=== PATIENT | female | born 1955 | race Caucasian/White ===

== ENCOUNTER 2019-04-02 13:19 | Inpatient (IN) | payer BC ==
[2019-04-02] MEDS ORDERED: KETOROLAC 30 MG/ML 1 ML VIAL IVP STA (14:23)
[2019-04-02] MEDS ORDERED: MORPHINE SULFATE 4 MG/ML SYRINGE IVP STA (14:23)
[2019-04-02] MEDS ORDERED: ONDANSETRON 4 MG/2 ML VIAL IVP STA (14:23)
[2019-04-02] MEDS ORDERED: SODIUM CHLORIDE 0.9% 1,000 ML IV ONE (14:24)
[2019-04-02] MEDS ORDERED: metroNIDAZOLE-NS PMX 500 MG in SALINE 1 100ML.BAG IVPB STA (14:24)
[2019-04-02] MEDS ORDERED: LEVOFLOXACIN 750MG-D5W PMX 750 MG in DEXTROSE/WATER 1 150ML.BAG IVPB STA (14:24)
--- NOTE | 2019-04-02 14:26 | ED ---
Abdominal Pain HPI - General Chief Complaint: Abdominal Pain Stated Complaint: possible perforated bowel Time Seen by Provider: 04/02/19 14:07 Source: patient, RN notes reviewed, old records reviewed Mode of arrival: ambulatory Limitations: no limitations - History of Present Illness Initial Comments: Patient is a 63-year-old female who presents emergency department today for evaluation for right-sided abdominal pain for the past 3-4 days. Patient states her symptoms started Monday night. Patient states that she had worsening abdominal pain and she decided that her primary care doctor's office today. They sent Patient for an outpatient CT and was sent directly here. Patient reports that she has had no nausea or vomiting. She's had frequent stools but has not been eating much for the past few days. Patient denies any associated chest pain or shortness of breath. She did report some chills but no specific fever. - Related Data Home Medications Medication Instructions Recorded Confirmed Levothyroxine Sodium [Synthroid] 88 mcg PO DAILY 04/02/19 04/02/19 Allergies Allergy/AdvReac Type Severity Reaction Status Date / Time bee venom protein (honey bee) Allergy Anaphylaxis Verified 04/02/19 13:56 cortisone Allergy Anaphylaxis Verified 04/02/19 13:56 fire ant Allergy Anaphylaxis Verified 04/02/19 13:56 latex Allergy Rash/Hives Verified 04/02/19 13:56 nickel Allergy Rash/Hives Verified 04/02/19 13:56 nitrofurantoin Allergy Anaphylaxis Verified 04/02/19 13:56 [From Macrodantin] triamcinolone [From Nasacort] Allergy Anaphylaxis Verified 04/02/19 13:56 cephalexin [From Keflex] AdvReac Vomiting Verified 04/02/19 13:56 meperidine [From Demerol] AdvReac Vomiting Verified 04/02/19 13:56 sulfamethoxazole AdvReac Nausea & Verified 04/02/19 13:56 [From Bactrim] Vomiting & Diarrhea trimethoprim [From Bactrim] AdvReac Nausea & Verified 04/02/19 13:56 Vomiting & Diarrhea Review of Systems ROS Statement: Those systems with pertinent positive or pertinent negative responses have been documented in the HPI. ROS Other: All systems not noted in ROS Statement are negative. Past Medical History Past Medical History: No Reported History History of Any Multi-Drug Resistant Organisms: None Reported Past Surgical History: Appendectomy, Section, Tubal Ligation Additional Past Surgical History / Comment(s): ovarian cyst removed. breast biopsy Past Psychological History: No Psychological Hx Reported Smoking Status: Current every day smoker Past Alcohol Use History: None Reported Past Drug Use History: None Reported General Exam - General Exam Comments Initial Comments: This is a 63-year-old female. Alert and oriented. No significant distress. Limitations: no limitations General appearance: alert, in no apparent distress Head exam: Present: atraumatic, normocephalic, normal inspection Eye exam: Present: normal appearance, PERRL, EOMI. Absent: scleral icterus, conjunctival injection, periorbital swelling ENT exam: Present: normal exam, mucous membranes moist Neck exam: Present: normal inspection. Absent: tenderness, meningismus, lymphadenopathy Respiratory exam: Present: normal lung sounds bilaterally. Absent: respiratory distress, wheezes, rales, rhonchi, stridor Cardiovascular Exam: Present: regular rate, normal rhythm, normal heart sounds. Absent: systolic murmur, diastolic murmur, rubs, gallop, clicks GI/Abdominal exam: Present: soft, tenderness (Right upper quadrant tenderness), normal bowel sounds. Absent: distended, guarding, rebound, rigid Extremities exam: Present: normal inspection, full ROM, normal capillary refill. Absent: tenderness, pedal edema, joint swelling, calf tenderness Back exam: Present: normal inspection Neurological exam: Present: alert, oriented X3, CN II-XII intact Psychiatric exam: Present: normal affect, normal mood Skin exam: Present: warm, dry, intact, normal color. Absent: rash Course Vital Signs 04/02/19 13:39 Temperature 98.5 F Pulse Rate 98 Respiratory 18 Rate Blood Pressure 121/81 O2 Sat by Pulse 95 Oximetry Medical Decision Making - Medical Decision Making 63-year-old female presents from outpatient CT for abnormal findings. She's been having abdominal pain, and right upper quadrant tenderness for the past [address] shows evidence of acute diverticulitis with a small amount of air frequent air related to localized perforation. There is also noted bladder mass that was a new etiology. Patient reports that she has had chronic hematuria for months. Patient with blood cell count is elevated 16,000. Blood cultures are completed started the Patient on Levaquin and Flagyl. Patient on exam has some tenderness but no acute surgical abdomen noted. Patient advised that she'll be admitted with consult to surgery. Patient is going to be on a nothing by mouth diet until further treatment. - Radiology Data Radiology results: report reviewed CT abdomen and pelvis shows moderate to severe short segment inflammation along the hepatic flexure and proximal transverse colon. Mild diverticular change here with adjacent small air locule. Findings just of acute diverticulitis with small localized perforation. Direct visualization recommended after successful treatment to exclude underlying neoplasm. Findings suggestive 1.6 cm left posterior bladder wall mass. Urethral carcinoma isn't excluded this time. Correlate for urine cytology and direct visualization as indicated. Also a 3 cm left adnexal cystic lesion likely ovarian in etiology. Patient is able to indicate a pelvic ultrasound to further characterize to determine subsequent follow-up/management recommendations. Disposition Clinical Impression: Diverticulitis of colon with perforation, Bladder mass, Ovarian mass, Leukocytosis Disposition: ADMITTED IP TO THIS HOSP Condition: Stable Is patient prescribed a controlled substance at d/c from ED?: No Referrals: Baldemar Agee MD [Primary Care Provider] - 1-2 days Time of Disposition: 14:29
[2019-04-02] MEDS ORDERED: ACETAMINOPHEN TAB 325 MG TAB PO PRN (14:29)
[2019-04-02] MEDS ORDERED: IBUPROFEN 400 MG TAB PO PRN (14:29)
[2019-04-02] MEDS ORDERED: MORPHINE SULFATE 4 MG/ML SYRINGE IV PRN (14:29)
[2019-04-02] MEDS ORDERED: KETOROLAC 30 MG/ML 1 ML VIAL IVP PRN (14:29)
[2019-04-02] MEDS ORDERED: NALOXONE 0.4 MG/ML 1 ML VIAL IV PRN (14:29)
[2019-04-02] MEDS ORDERED: ONDANSETRON 4 MG/2 ML VIAL IVP PRN (14:29)
[2019-04-02] MEDS: SODIUM CHLORIDE 0.9% 1,000 ML IV SCH ×2 (14:56→23:57)
[2019-04-03 07:55] VITALS: RESP 16
[2019-04-03] MEDS ORDERED: PANTOPRAZOLE 40 MG/10 ML VIAL IV SCH (09:00)
--- NOTE | 2019-04-03 09:25 | P.GSCN ---
<Tammi Rios A - Last Filed: 04/03/19 09:18> History of Present Illness Consult date: 04/03/19 Reason for Consult: diverticulitis Requesting physician: Chelo Hall History of present illness: CHIEF COMPLAINT: Abdominal pain HISTORY OF PRESENT ILLNESS: 63 year old female who presented to the emergency room secondary to abdominal pain. Patient reports abdominal pain for the last 3- 4 days and was evaluated at her PCP yesterday who ordered CT scan. CT scan revealed diverticulitis with small localized perforation. Patient reports mild abdominal discomfort this morning. WBC yesterday was 16.0. Hemoglobin 14.4. Vital signs stable. She is afebrile. PAST MEDICAL HISTORY: See list. PAST SURGICAL HISTORY: See list. SOCIAL HISTORY: No illicit drug use. REVIEW OF SYSTEMS: CONSTITUTIONAL: Denies fever or chills. HEENT: Denies blurred vision, vision changes, or eye pain. Denies hemoptysis CARDIOVASCULAR: Denies chest pain or pressure. RESPIRATORY: No shortness of breath. GASTROINTESTINAL: Refer to HPI for pertinent findings HEMATOLOGIC: Denies bleeding disorders. GENITOURINARY: Denies any blood in urine. SKIN: Denies pruitis. Denies rash. PHYSICAL EXAM: VITAL SIGNS: Reviewed. GENERAL: Well-developed in no acute distress. HEENT: No sclera icterus. Extraocular movements grossly intact. Moist buccal mucosa. Head is atraumatic, normocephalic. ABDOMEN: Soft. Nondistended. Mild tenderness to palpation. Positive bowel sounds. NEUROLOGIC: Alert and oriented. Cranial nerves II through XII grossly intact. ASSESSMENT: 1. Abdominal pain 2. Acute diverticulitis with microperforation PLAN: 1. Begin full liquid diet 2. Continue antibiotics. Monitor WBC 3. Patient to see Dr. Atkins outpatient post discharge. She will require colonoscopy in 4-6 weeks. Nurse practitioner note has been reviewed by physician. Signing provider agrees with the documented findings, assessment, and plan of care. Past Medical History Past Medical History: Thyroid Disorder Additional Past Medical History / Comment(s): hypothyroid History of Any Multi-Drug Resistant Organisms: None Reported Past Surgical History: Appendectomy, Section, Tubal Ligation Additional Past Surgical History / Comment(s): ovarian cyst removed. breast biopsy Past Anesthesia/Blood Transfusion Reactions: No Reported Reaction Additional Past Anesthesia/Blood Transfusion Reaction / Comm: hard to wake up with anesthesia Past Psychological History: No Psychological Hx Reported Smoking Status: Current every day smoker Past Alcohol Use History: None Reported Past Drug Use History: None Reported - Past Family History Father Family Medical History: Coronary Artery Disease (CAD) Medications and Allergies Home Medications Medication Instructions Recorded Confirmed Type Levothyroxine Sodium [Synthroid] 88 mcg PO DAILY 04/02/19 04/02/19 History Allergies Allergy/AdvReac Type Severity Reaction Status Date / Time bee venom protein (honey bee) Allergy Anaphylaxis Verified 04/02/19 13:56 cortisone Allergy Anaphylaxis Verified 04/02/19 13:56 fire ant Allergy Anaphylaxis Verified 04/02/19 13:56 latex Allergy Rash/Hives Verified 04/02/19 13:56 nickel Allergy Rash/Hives Verified 04/02/19 13:56 nitrofurantoin Allergy Anaphylaxis Verified 04/02/19 13:56 [From Macrodantin] triamcinolone [From Nasacort] Allergy Anaphylaxis Verified 04/02/19 13:56 cephalexin [From Keflex] AdvReac Vomiting Verified 04/02/19 13:56 meperidine [From Demerol] AdvReac Vomiting Verified 04/02/19 13:56 sulfamethoxazole AdvReac Nausea & Verified 04/02/19 13:56 [From Bactrim] Vomiting & Diarrhea trimethoprim [From Bactrim] AdvReac Nausea & Verified 04/02/19 13:56 Vomiting & Diarrhea Surgical - Exam Vital Signs Temp Pulse Resp BP Pulse Ox 98.5 F 98 18 121/81 95 04/02/19 13:39 04/02/19 13:39 04/02/19 13:39 04/02/19 13:39 04/02/19 13:39 <Dominguez Atkins - Last Filed: 04/03/19 10:14> History of Present Illness History of present illness: As above. Patient with a 3 day history of right upper quadrant abdominal pain. Patient had an outpatient CAT scan showing inflammatory changes at the proximal transverse colon with possibility of small microperforation. Patient feels quite well and is actually very impatient to go home at this time. She is very hungry and thirsty. Denies fevers. Has had mild right-sided pain that she thought may be her gallbladder for the last few months intermittently. No history of previous colonoscopy. CAT scan findings and clinical scenario discussed in detail with the patient and her . Certainly some concern regarding the possibility of underlying malignancy given the CAT scan findings and the patient's abdominal exam at this time. Agree with plans for IV antibiotics. If she tolerates full liquids would consider discharge staining on full liquids for 48 hours before advancing to low fiber diet. Continue antibiotics for 7 days post discharge. Importance of colonoscopy in the next 4- 8 weeks discussed in detail the patient was initially refusing future colonoscopy. I believe now she is willing to proceed given the CAT scan findings. Await repeat CBC this morning. Will follow. Surgical - Exam Vital Signs Temp Pulse Resp BP Pulse Ox 98.5 F 98 18 121/81 95 04/02/19 13:39 04/02/19 13:39 04/02/19 13:39 04/02/19 13:39 04/02/19 13:39
[2019-04-03] MEDS ORDERED: LEVOTHYROXINE 88 MCG TAB PO SCH (09:30)
[2019-04-03] MEDS ORDERED: metroNIDAZOLE-NS PMX 500 MG in SALINE 1 100ML.BAG IVPB SCH (10:00)
[2019-04-03] MEDS: SODIUM CHLORIDE 0.9% 1,000 ML IV SCH (11:59)
[2019-04-03 12:23] LABS: Basophils # (A) 0.1 k/uL (0-0.2); Basophils % (A) 1 %; Eosinophils # (A) 0.2 k/uL (0-0.7); Eosinophils % (A) 1 %; HCT 39.6 % (34.0-46.0); HGB 12.7 gm/dL (11.4-16.0); Lymphocytes # (A) 2.2 k/uL (1.0-4.8); Lymphocytes % (A) 13 %; MCH 29.8 pg (25.0-35.0); MCV 93.2 fL (80.0-100.0); Mean Platelet Volume 6.9; Monocytes # (A) 0.7 k/uL (0-1.0); Monocytes % (A) 4 %; Neutrophils # (A) 13.8 k/uL (1.3-7.7); Neutrophils % (A) 80 %; Platelet Count 354 k/uL (150-450); RBC 4.25 m/uL (3.80-5.40); RDW 15.4 % (11.5-15.5); WBC 17.2 k/uL (3.8-10.6)
[2019-04-03] MEDS ORDERED: LEVOFLOXACIN 750MG-D5W PMX 750 MG in DEXTROSE/WATER 1 150ML.BAG IVPB SCH (14:00)
[2019-04-03 15:09] VITALS: BP 115/77; TEMP 98.3
[2019-04-03 15:21] VITALS: PULSE 72
--- NOTE | 2019-04-03 16:08 | P.HPIM ---
History of Present Illness H&P Date: 04/03/19 Chief Complaint: Abdominal pain This is 63-year-old female presented to the ER with complaints of right-sided abdominal pain 3 days, accompanied by a decrease appetite, frequent stools, positive chills, no fever and chronic hematuria. Presented to the PCP. Outpatient CT performed, abnormal reporting acute diverticulitis, small air secondary to localized perforation, 1.6 cm bladder mass, 3 cm left adnexal cystic lesion-? ovarian. WBC 16 , hemoglobin 14.4, VSS. Denies chest pain, palpitations or shortness of breath. Initiated on Levaquin and Flagyl. Evaluated by surgery, nonsurgical abdomen, diet advanced to full liquids with outpatient scope recommended in a few weeks. Afebrile. Review of Systems ROS Statement: Those systems with pertinent positive or pertinent negative responses have been documented in the HPI. ROS Other: All systems not noted in ROS Statement are negative. Past Medical History Past Medical History: Thyroid Disorder Additional Past Medical History / Comment(s): hypothyroid History of Any Multi-Drug Resistant Organisms: None Reported Past Surgical History: Appendectomy, Section, Tubal Ligation Additional Past Surgical History / Comment(s): ovarian cyst removed. breast biopsy Past Anesthesia/Blood Transfusion Reactions: No Reported Reaction Additional Past Anesthesia/Blood Transfusion Reaction / Comment(s): hard to wake up with anesthesia Past Psychological History: No Psychological Hx Reported Smoking Status: Current every day smoker Past Alcohol Use History: None Reported Past Drug Use History: None Reported - Past Family History Father Family Medical History: Coronary Artery Disease (CAD) Medications and Allergies Home Medications Medication Instructions Recorded Confirmed Type Levothyroxine Sodium [Synthroid] 88 mcg PO DAILY 04/02/19 04/02/19 History Allergies Allergy/AdvReac Type Severity Reaction Status Date / Time bee venom protein (honey bee) Allergy Anaphylaxis Verified 04/02/19 13:56 cortisone Allergy Anaphylaxis Verified 04/02/19 13:56 fire ant Allergy Anaphylaxis Verified 04/02/19 13:56 latex Allergy Rash/Hives Verified 04/02/19 13:56 nickel Allergy Rash/Hives Verified 04/02/19 13:56 nitrofurantoin Allergy Anaphylaxis Verified 04/02/19 13:56 [From Macrodantin] triamcinolone [From Nasacort] Allergy Anaphylaxis Verified 04/02/19 13:56 cephalexin [From Keflex] AdvReac Vomiting Verified 04/02/19 13:56 meperidine [From Demerol] AdvReac Vomiting Verified 04/02/19 13:56 sulfamethoxazole AdvReac Nausea & Verified 04/02/19 13:56 [From Bactrim] Vomiting & Diarrhea trimethoprim [From Bactrim] AdvReac Nausea & Verified 04/02/19 13:56 Vomiting & Diarrhea Physical Exam Vitals: Vital Signs Temp Pulse Pulse Resp BP BP BP 04/03/19 07:00 98.6 F 72 16 114/66 04/03/19 00:46 98.9 F 78 14 104/58 04/02/19 21:00 97.1 F L 80 14 116/71 04/02/19 20:00 98.9 F 79 18 123/76 04/02/19 15:45 98.2 F 78 17 114/73 04/02/19 15:25 78 17 04/02/19 13:39 98.5 F 98 18 121/81 Pulse Ox 04/03/19 07:00 94 L 04/03/19 00:46 96 04/02/19 21:00 04/02/19 20:00 98 04/02/19 15:45 95 04/02/19 15:25 04/02/19 13:39 95 Intake and Output 04/02/19 04/03/19 04/03/19 22:59 06:59 14:59 Intake Total 0 Balance 0 Intake: Oral 0 Other: Voiding Method Toilet # Voids 1 PHYSICAL EXAM: VITAL SIGNS: As above GENERAL: Sitting up in chair, no acute distress, anxious HEENT: Conjunctivae normal. eyes normal. Oral mucosa moist NECK: No JVD. No thyroid enlargement. No LNs CARDIOVASCULAR: S1, S2 regular.. No murmur RESPIRATION: Breath sounds diminished in the bases. No rhonchi or crackles. No bronchial breathing. ABDOMEN: Soft, nondistended, mild right lower quadrant tenderness . No guarding. no masses palpable. No ascites, No hepatosplenomegaly.Bowel sounds heard. LEGS: No edema. no swelling PSYCHIATRY: Alert and oriented X3, mood and affect normal. NERVOUS SYSTEM: Cranial N 2-12 grossly normal. Moves all 4 limbs. No focal deficits. Strength and sensation grossly intact.. Skin: no lesions, no rash Lymphatic system. No LN neck axilla or groin. Results CBC & Chem 7: 04/03/19 12:05 Thrombosis Risk Factor Assmnt - Choose All That Apply Each Risk Factor Represents 2 Points: Age 61-74 years Thrombosis Risk Factor Assessment Total Risk Factor Score: 2 Thrombosis Risk Factor Assessment Level: Low Risk Assessment and Plan Assessment: -Abdominal pain secondary to Acute Diverticulitis with microperforation -Leukocytosis, secondary to the above -Possible bladder mass/ovarian mass as per CT -Hypothyroidism Plan: Continue current medication regime ,monitoring and symptomatic treatment. Continue on Levaquin and Flagyl. Homans have been reviewed and resumed. GI prophylaxis. Close monitoring of WBC, patient reports she had prior bladder/renal/pelvis scans at [facility] in October or November 2018, records been obtained. Pelvis ultrasound ordered. Diet advancement as per surgery. Blood cultures pending. Outpatient follow-up with urology. Further recommendations to follow. The impression and plan of care has been dictated as directed. : I performed a history and examination of this patient, discussed the same with the dictator. I agree with the dictator's note ,documented as a scribe. Any additional findings or plans will be noted. Time taken: 35 minutes
--- NOTE | 2019-04-03 16:25 | US ---
EXAMINATION TYPE: US pelvic complete DATE OF EXAM: 04/03/2019 COMPARISON: CT 2019 CLINICAL HISTORY: Bladder mass, ovarian mass. Ovarian/bladder mass seen on previous CT, pelvic pain, hematuria, 2, para 2, history of 2 c-sections, tubal ligation, right ovary removed TECHNIQUE: . Transabdominal sonographic images of the pelvis were acquired. Date of LMP: 15 years ago EXAM MEASUREMENTS: Uterus: 7.8 x 1.5 x 3.7 cm Endometrial Stripe: 0.3 cm Right Ovary: surgically absent Left Ovary: 3.6 x 2.1 x 3.0 cm 1. Uterus: anteverted 2. Endometrium: wnl 3. Right Ovary: surgically absent 4. Left Ovary: 2.4 x 1.5 x 2.1cm cystic area 5. Bilateral Adnexa: wnl 6. Posterior cul-de-sac: wnl Bladder: 2.0 x 1.4 x 2.4cm hypoechoic solid appears area left posterior wall IMPRESSION: 1. Hypoechoic solid bladder lesion noted posterior wall on the left. 2. Nonspecific cyst left ovary measuring 2.5 x 2.1 cm.
[2019-04-04] MEDS ORDERED: PANTOPRAZOLE 40 MG TABLET PO SCH (09:00)
--- NOTE | 2019-04-04 09:31 | P.DS ---
Providers Date of admission: 04/02/19 14:20 Expected date of discharge: 04/03/19 Attending physician: Baldemar Agee Consults: 04/02/19 14:29 Consult Physician Stat Consulting Provider: Dominguez Atkins Consult Reason/Comments: Diverticulitis with minimal perforation Do you want consulting provider notified?: Yes Primary care physician: Baldemar Agee [facility] Course: patient left AMA. Please refer to my H & P for specifics. Patient Condition at Discharge: Stable Plan - Discharge Summary Discharge Rx Participant: Yes New Discharge Prescriptions: No Action Levothyroxine Sodium [Synthroid] 88 mcg PO DAILY Discharge Medication List Levothyroxine Sodium [Synthroid] 88 mcg PO DAILY 04/02/19 [History] Follow up Appointment(s)/Referral(s): Dominguez Atkins MD [Medical Doctor] - 2 Weeks Baldemar Agee MD [Primary Care Provider] - 1 Week Discharge Disposition: Left Against Medical Advice
== END 2019-04-03 19:15 | disposition left against medical advice (07) | DRG 392 ==
LOC: EC 13:19 → 4SSUR 14:20
PROVIDERS: ADMIT Family Medicine; ATTEND Family Medicine
DX: K57.20 Diverticulitis of large intestine with perforation and abscess without bleeding (principal); N83.9 Noninflammatory disorder of ovary, fallopian tube and broad ligament, unspecified; N32.9 Bladder disorder, unspecified; E03.9 Hypothyroidism, unspecified; F17.200 Nicotine dependence, unspecified, uncomplicated; N83.292 Other ovarian cyst, left side; Z79.890 Hormone replacement therapy; Z82.49 Family history of ischemic heart disease and other diseases of the circulatory system; Z88.1 Allergy status to other antibiotic agents; Z91.030 Bee allergy status; Z91.040 Latex allergy status; Z88.2 Allergy status to sulfonamides; Z88.8 Allergy status to other drugs, medicaments and biological substances; Z91.048 Other nonmedicinal substance allergy status; Z98.891 History of uterine scar from previous surgery; Z98.51 Tubal ligation status; Z90.89 Acquired absence of other organs; Z90.49 Acquired absence of other specified parts of digestive tract
CPT/HCPCS: 36415; 76856; 85025; 87040; 96365; 99285

== ENCOUNTER → 2019-04-02 | Outpatient (CLI) | payer BC ==
[2019-04-02 11:48] LABS: Basophils # (A) 0.1 k/uL (0-0.2); Basophils % (A) 1 %; Eosinophils # (A) 0.1 k/uL (0-0.7); Eosinophils % (A) 1 %; HCT 45.6 % (34.0-46.0); HGB 14.4 gm/dL (11.4-16.0); Lymphocytes # (A) 2.4 k/uL (1.0-4.8); Lymphocytes % (A) 15 %; MCH 29.4 pg (25.0-35.0); MCHC 31.5 g/dL (31.0-37.0); MCV 93.2 fL (80.0-100.0); Mean Platelet Volume 6.7; Monocytes # (A) 0.7 k/uL (0-1.0); Monocytes % (A) 4 %; Neutrophils # (A) 12.6 k/uL (1.3-7.7); Neutrophils % (A) 78 %; Platelet Count 405 k/uL (150-450); RBC 4.89 m/uL (3.80-5.40)
[2019-04-02 11:55] LABS: ALT 14 U/L (9-52); AST 18 U/L (14-36); African American GFR (CKD) >90 (>60 ml/min/1.73 sqM); Albumin 4.5 g/dL (3.5-5.0); Alkaline Phosphatase 87 U/L (38-126); Amylase 35 U/L (30-110); Anion Gap 10 mmol/L; Blood Urea Nitrogen 10 mg/dL (7-17); Calcium 9.8 mg/dL (8.4-10.2); Carbon Dioxide 27 mmol/L (22-30); Chloride 102 mmol/L (98-107); Glucose 98 mg/dL (74-99); Lipase 47 U/L (23-300); Potassium 4.3 mmol/L (3.5-5.1); Sodium 139 mmol/L (137-145); Total Bilirubin 0.8 mg/dL (0.2-1.3); Total Protein 7.3 g/dL (6.3-8.2)
[2019-04-02 12:11] LABS: T4, Free (Free Thyroxine) 1.67 ng/dL (0.78-2.19)
--- NOTE | 2019-04-02 12:23 | CT ---
EXAMINATION TYPE: CT abdomen pelvis wo con DATE OF EXAM: 04/02/2019 COMPARISON: None HISTORY: 63-year-old female RLQ pain with hematuria CT DLP: 229.7 mGycm. Automated exposure control for dose reduction was used. TECHNIQUE: Contiguous axial scanning of the abdomen and pelvis without IV contrast. Coronal and sagit dominic reconstructions performed. FINDINGS: Heart normal size without pericardial effusion. Lung bases clear without pleural effusion. Ectatic lower descending thoracic aorta at 2.8 cm. 2.3 cm cyst left liver lobe. Additional smaller hypodensities, likely cysts are present throughout th e liver. Noncontrast appearance of the gallbladder, adrenal glands, kidneys, spleen, and pancreas show no edin s abnormal body. No dilated small bowel or free air. Appendix is not discretely visualized. No secondary findings of acute appendicitis. Cecum appears normal. However, there is moderate to severe wall thickening extending along the hepati c flexure and proximal transverse colon, refer to axial image 79 and coronal images 17, 18, 19. There is suggestion of a contained rupture with given extensive adjacent fat stranding and some air l ocules along the superior margin, refer to axial image 72 and coronal image 19. Mild diverticular jamarcus nge is suggested in this region. No definite intra-abdominal lymphadenopathy. Bladder is urine distended. There is 1.6 cm mural based soft tissue nodule along the left posterior b ladder wall, axial image 117. 3.0 x 1.8 cm cystic lesion left adnexa. Uterus is tilted towards the left. Right ovary not clearly delineated from adjacent clustered bowel l oops. No abnormal fluid collection the pelvis or pelvic lymphadenopathy seen. Bones: Mild degenerative change of the hips. Hypertrophic facet arthropathy and degenerative disc dis ease lower lumbar spine. Grade 1 anterolisthesis L4-L5. IMPRESSION: 1. Moderate to severe short segment inflammation along the hepatic flexure and proximal transverse co margret. There is mild diverticular change here with adjacent small air locules. Findings suggest acute d iverticulitis with a small localized perforation. Direct visualization recommended after successful t reatment to exclude underlying neoplasm. 2. Findings suspicious for a 1.6 cm left posterior bladder wall mass. Urothelial carcinoma not exclud ed at this time. Correlate with urine cytology and direct visualization as indicated. 3. A 3.0 cm left adnexal cystic lesion likely of ovarian etiology. When patient able, dedicated pelvi c ultrasound to further characterize and determine subsequent follow-up/management recommendations. The ambulatory technologist will contact the clinician's office and make arrangements to have the patient sen t to the ER.
== END | disposition home or self-care (01) ==
LOC: RADCTMAIN 11:11
PROVIDERS: ATTEND Nurse Practitioner Family
DX: R10.11 Right upper quadrant pain (principal); R10.31 Right lower quadrant pain; R31.9 Hematuria, unspecified; R50.9 Fever, unspecified; Z88.1 Allergy status to other antibiotic agents; Z91.040 Latex allergy status; Z88.8 Allergy status to other drugs, medicaments and biological substances; Z88.5 Allergy status to narcotic agent
CPT/HCPCS: 74176; 80053; 82150; 83690; 84439; 84443; 85025

== ENCOUNTER → 2021-08-12 | Outpatient (CLI) | payer MEDICARE, BC ==
--- NOTE | 2021-08-12 08:31 | US ---
EXAMINATION TYPE: US kidneys/renal and bladder DATE OF EXAM: 08/12/2021 COMPARISON: 04/03/2019 CLINICAL HISTORY: C67.9 Bladder Cancer. hx bladder cancer x 2 years ago with surgical removal. Hemat uria. EXAM MEASUREMENTS: Right Kidney: 10.7 x 4.5 x 4.3 cm Left Kidney: 10.6 x 5.0 x 5.3 cm Right Kidney: Medial anechoic lesion at hilum = 2.2 x 1.1 cm. Lower lateral pole cystic lesion = 0.6 x 0.6 x 0.6 cm Left Kidney: No hydronephrosis or masses seen, limited due to overlying bowel gas Bladder: distended, anechoic Bilateral Jets seen IMPRESSION: 1. There may be an extrarenal pelvis on the right. Hydronephrosis is not identified. 2. Urinary bladder as visualized appears unremarkable. No obvious masses or recurrent neoplasm is april ntified. 3. Tiny right renal cortical cyst.
== END | disposition home or self-care (01) ==
LOC: RADUSWWP 07:39
PROVIDERS: ATTEND Urology
DX: C67.9 Malignant neoplasm of bladder, unspecified (principal); N28.1 Cyst of kidney, acquired
CPT/HCPCS: 76770

== ENCOUNTER → 2023-02-28 | Outpatient (CLI) | payer MEDICARE, BC ==
[2023-02-28 07:08] LABS: African American GFR (CKD) >90 (>60 ml/min/1.73 sqM); Blood Urea Nitrogen 13 mg/dL (7-17); Non-African American GFR(CKD) 83 (>60 ml/min/1.73 sqM)
--- NOTE | 2023-02-28 08:13 | CT ---
EXAMINATION TYPE: CT soft tissue neck w con DATE OF EXAM: 02/28/2023 COMPARISON: none HISTORY: Swelling, Mass, lump in neck CT DLP: 275.20 mGycm CONTRAST: CT scan of the neck is performed with IV Contrast, patient injected with 100 ml mL of Isovue 300. Contrast enhanced CT of the neck was performed from the skull base through the lung apices. A marker is placed over the right neck at the site of clinical concern. At the site of clinical concern the BB marker corresponds to the sternocleidal mastoid musculature an d right external jugular vein. There is no mass present in this region. AIRWAY: The supraglottic, glottic, and subglottic portions of the airway appear patent and free of mass. SALIVARY GLANDS: The submandibular and parotid glands are free of mass or inflammatory process. THYROID GLAND: No nodules or masses seen. LYMPH NODES: No adenopathy seen greater than 1cm. LUNG APICES: No nodule or mass is seen. OTHER: Vascular structures are patent. Mild degenerative change of the cervical spine. No abscess s een. IMPRESSION: No discrete abnormality appreciated at this time.
== END | disposition home or self-care (01) ==
LOC: RADCTMAIN 06:26
PROVIDERS: ATTEND Otolaryngology
DX: R22.1 Localized swelling, mass and lump, neck (principal)
CPT/HCPCS: 82565; 84520; 70491; 36415; Q9967

== ENCOUNTER → 2024-03-01 | Outpatient (CLI) | payer BC, MEDICARE ==
--- NOTE | 2024-03-03 18:10 | CT ---
EXAMINATION TYPE: CT iac wo con CT DLP: 150 mGycm, Automated exposure control for dose reduction was used. DATE OF EXAM: 03/01/2024 7:15 AM INDICATION: Patient age:Female; 68 years old; Reason for study: H93.19 TINNITUS, UNSPECIFIED EAR; PHH. COMPARISON: CT neck 02/28/2023. TECHNIQUE: Multiple thin axial images were obtained through the temporal bones and internal auditory canals. Additional coronal reformatted images were obtained. No IV contrast was utilized. FINDINGS: Right Temporal Bone: External Ear: The external auditory canal is unremarkable, The tympanic membrane is present and unrem arkable. Middle Ear: The ossicles demonstrate a normal appearance. Prussak's space is clear and the scutum i s intact. There is no evidence of osseous erosion and the tegmen tympani is intact. Inner Ear: Cochlea, vestibule and semi circular canals are unremarkable. No evidence of carotid cecile l dehiscence. Two and a half turns of the cochlea are identified. The vestibular aqueduct is not enl arged. Mastoid Air Cells: The mastoid air cells are clear. The tegmen mastoideum is intact. The aditus ad an trum is clear. Internal Auditory Canal: The internal auditory canal is unremarkable. Left Temporal Bone: External Ear: The external auditory canal is unremarkable, The tympanic membrane is present and unrem arkable. Middle Ear: The ossicles demonstrate a normal appearance. Prussak's space is clear and the scutum i s intact. There is no evidence of osseous erosion and the tegmen tympani is intact. Inner Ear: Cochlea, vestibule and semi circular canals are unremarkable. No evidence of carotid eccile l dehiscence. Two and a half turns of the cochlea are identified. The vestibular aqueduct is not enl arged. Mastoid Air Cells: The mastoid air cells are clear. The tegmen mastoideum is intact. The aditus ad an trum is clear. Internal Auditory Canal: The internal auditory canal is unremarkable. Mild mucosal thickening of the right sphenoid sinus. Bilateral aphakia. IMPRESSION: Normal internal auditory canal study.
== END | disposition home or self-care (01) ==
LOC: RADCTMAIN 06:56
PROVIDERS: ATTEND Otolaryngology
DX: H93.19 Tinnitus, unspecified ear (principal); H91.90 Unspecified hearing loss, unspecified ear
CPT/HCPCS: 70480

== ENCOUNTER → 2024-08-08 | Outpatient (CLI) | payer MEDICARE ==
--- NOTE | 2024-08-08 18:35 | US ---
EXAMINATION TYPE: US kidneys/renal and bladder DATE OF EXAM: 08/08/2024 COMPARISON: NONE CLINICAL INDICATION: Female, 69 years old with history of C67.9 Bladder ca; TECHNIQUE: Grayscale imaging of the bilateral kidneys and urinary bladder: FINDINGS: EXAM MEASUREMENTS: Right Kidney: 10.4x3.7x4.9 cm Left Kidney: 10.6x4.9x5.0 cm Right Kidney: multiple anechoic structures seen, largest(lat): 1.0x0.9cm Left Kidney: ? slightly dilated renal pelvis Bladder: wnl Bilateral Jets seen: Yes There is no evidence for hydronephrosis at this point in time. No nephrolithiasis is seen. No pilar s are identified. The urinary bladder is anechoic. IF: Left Liver: anechoic structure: 1.0x0.8x1.0cm IMPRESSION: 1. No bladder masses definitively visualized. 2. No evidence for acute process. 3. Right renal simple appearing cyst. 4. Left renal dilated pelvis possibly representing extrarenal pelvis. 5. Hepatic cyst. [facility], , 08/08/2024 6:33 PM
== END | disposition home or self-care (01) ==
LOC: RADUSWWP 12:00
PROVIDERS: ATTEND Urology
DX: C67.9 Malignant neoplasm of bladder, unspecified (principal); K76.89 Other specified diseases of liver; N28.1 Cyst of kidney, acquired
CPT/HCPCS: 76770

== ENCOUNTER → 2024-12-02 | Outpatient (CLI) | payer MEDICARE ==
--- NOTE | 2024-12-02 17:32 | CT ---
EXAMINATION TYPE: CT wrist RT wo con DATE OF EXAM: 12/02/2024 4:50 PM COMPARISON: None CLINICAL INDICATION: Female, 69 years old with history of S52.571A FX LOWER END OF RIGHT RADIUS; PHH, right wrist fx TECHNIQUE: Axial images were obtained of the CT wrist RT wo con, Additional coronal and sagittal refo rmatted images and soft tissue and bone window were obtained for review. 3-D reconstruction was creat ed on a separate workstation. Contrast used: mL of , (None if empty) Oral contrast used: (None if empty) CT DLP: 112.6 mGycm, Automated exposure control for dose reduction was used. FINDINGS: Comminuted distal radius fracture with intra-articular extension into the distal radioulnar joint and the wrist. There is mild displacement of the volar fragment anteriorly up to 7 mm. There i s shortening of the wrist. No additional fractures visualized. Nondisplaced ulnar styloid radius frac ture also present. IMPRESSION: 1. Comminuted distal radius fracture with shortening and intra-articular extension with displacement of the fragments. 2. a ulnar radial styloid process fracture which is nondisplaced also present. [facility], , 12/02/2024 5:30 PM
== END | disposition home or self-care (01) ==
LOC: RADCTMAIN 16:05
PROVIDERS: ATTEND Orthopaedic Surgery
DX: S52.571A Other intraarticular fracture of lower end of right radius, initial encounter for closed fracture (principal); S52.611A Displaced fracture of right ulna styloid process, initial encounter for closed fracture

== ENCOUNTER → 2025-01-06 | Outpatient (CLI) | payer MEDICARE ==
--- NOTE | 2025-01-06 12:24 | CTL ---
EXAMINATION TYPE: CT Low Dose Lung DATE OF EXAM: 01/06/2025 8:16 AM COMPARISON: None. SCREENING VISIT: Initial CT DIAGNOSTIC QUALITY: Satisfactory CLINICAL INDICATION: Female, 69 years old with history of Z12.2 LUNG CA SCR Z87.891 FORMER SMOKER, fo rmer smoker quit 5 years ago. smoked 1 PPD x 45 years., Lung cancer screening, History of tobacco use . TECHNIQUE: Low dose computed tomography scan was performed through the chest at 1 mm thick sections a nd reconstructed images in the coronal plane at 1 mm thick sections. Contrast used: mL of , (none if empty) Oral contrast used: (none if empty) CT DLP: 42.1 mGycm, Automated exposure control for dose reduction was used. CT CTDI: 1.1 mGy, Automated exposure control for dose reduction was used. FINDINGS: LUNG NODULES: Present, detailed below: 1. There is a pleural-based 0.8 cm nodule posterior right lung. Series 4 image 82. 2. There is a suspicious spiculated nodule measuring 2.3 x 1.7 cm left infrahilar region. Series 4 im age 105. 3. There is a suspicious left infrahilar nodule measuring 1.4 cm. Series 4 image 115. LUNGS: COPD: Severity: None Fibrosis: Severity: None Lymph nodes: None Other findings: None RIGHT PLEURAL SPACE: Effusion: None Calcification: None Thickening: None Pneumothorax: None LEFT PLEURAL SPACE: Effusion: None Calcification: None Thickening: None Pneumothorax: None HEART: Other: Ascending thoracic aorta at the level the main pulmonary artery measures 3.2 cm. The main pul monary artery at the bifurcation measures 2.1 cm. Heart Size: Normal Coronary calcification: No significant coronary artery calcifications. Pericardial effusion: None OTHER FINDINGS: Upper abdomen: Normal Bony thorax: Normal Supraclavicular region: Normal IMPRESSION: 1. Suspicious nodules within the left infrahilar region. Additional workup for neoplasm with PET/CT i s recommended. FOLLOW UP CT CHEST RECOMMENDATION: PET/CT CT LUNG RAD: Lung-Rad 4A Suspicious A Yellow level critical message alert has been initiated for Leonard Spencer MD via the [employer] Critical Results System on 01/06/2025 12:21 PM. This message alert has been sent to Leonard Spencer MD via the preferences provided by the clinician for the receipt of Radiology Critical Findings. Message ID [id number]. [facility], , 01/06/2025 12:22 PM
== END | disposition home or self-care (01) ==
LOC: RADCTMAIN 07:43
PROVIDERS: ATTEND Internal Medicine Geriatric Medicine
DX: Z12.2 Encounter for screening for malignant neoplasm of respiratory organs (principal); Z87.891 Personal history of nicotine dependence
CPT/HCPCS: 71271

== ENCOUNTER → 2025-01-13 | Outpatient (CLI) | payer MEDICARE ==
[2025-01-13 11:02] LABS: African American GFR (CKD) >90 (>60 ml/min/1.73 sqM); Blood Urea Nitrogen 12 mg/dL (7-17); Non-African American GFR(CKD) 89 (>60 ml/min/1.73 sqM)
--- NOTE | 2025-01-13 12:31 | CT ---
EXAMINATION TYPE: CT chest abdomen wo/w con CT DLP: 658.0 mGycm, Automated exposure control for dose reduction was used. DATE OF EXAM: 01/13/2025 11:53 AM COMPARISON: CT low-dose lung 01/06/2025, CT abdomen and pelvis 04/02/2019 CLINICAL INDICATION:Female, 69 years old with history of C34.90 LUNG CANCER; PHH, poss lung ca. prior low dose ct .04.25. Technique: Multiple axial images of the chest and abdomen before and after the uneventful administrat ion 100 mL of Isovue-370 intravenously. Oral contrast was administered. Two-dimensional coronal and s agittal reconstructions were obtained. Findings: CHEST: LUNGS/ PLEURA: No pleural effusion, pneumothorax, focal consolidation. Stable posterior right upper lung 0.8 cm pleural-based solid pulmonary nodule (series 4, image 16). Stable left upper lobe perihil ar 2.5 x 1.9 cm irregular solid pulmonary mass (series 4, image 23). AIRWAY: Patent and unremarkable.. HEART: Size within normal limits. . No pericardial effusion. No significant coronary artery calcifica tions. MEDIASTINUM: No pathologically enlarged lymph nodes greater than 1 cm short axis. VASCULATURE: No aortic aneurysm. Four-vessel aortic arch. MUSCULOSKELETAL: No acute osseous abnormalities. Multilevel anterior osteophytosis of the mid thoraci c spine. SOFT TISSUES/LYMPH NODES: Prominent in the short axis right axillary lymph node (series 8, image 16). LOWER NECK: No significant findings. ABDOMEN: ABDOMEN LIVER: Multiple scattered hepatic cysts the largest in the left hepatic lobe measuring 1.1 cm a large r cyst within the inferior right hepatic lobe measuring 1.2 cm. Additional smaller scattered subcenti meter hypodense nodules which appear relatively stable from prior CT in 2019 and favored to represent cysts. GALLBLADDER AND BILE DUCTS: Unremarkable. PANCREAS: Unremarkable. SPLEEN: Unremarkable. ADRENAL GLANDS: Unremarkable. KIDNEYS AND URETERS: No evidence of hydronephrosis or renal calculus. The kidneys enhance symmetrical ly. Contrast is demonstrated within both collecting systems and proximal ureters on the delayed phase . Right renal simple 8 mm cyst. No follow-up is recommended. STOMACH AND BOWEL: Stomach and duodenum are unremarkable. Enteric contrast is reaches the mid to dist al small bowel. No focal bowel wall thickening or surrounding inflammatory changes identified. No charles dence of bowel obstruction. PERITONEUM: No evidence of pneumoperitoneum or free fluid. VASCULATURE: Mild atherosclerotic calcifications are present throughout the abdominal aorta and its b ranches. No abdominal aortic aneurysm. MUSCULOSKELETAL: No acute osseous abnormalities. Multilevel degenerative disc disease of the lower loretta mbar spine. Dextrocurvature of the thoracolumbar spine. LYMPH NODES: No evidence for lymphadenopathy. SOFT TISSUE/ABDOMINAL WALL: Unremarkable IMPRESSION: Redemonstration of left perihilar suspicious pulmonary nodule measuring up to 2.5 cm with additional right posterior upper lung pleural-based 0.8 cm pulmonary nodule. Raises concern for primary lung mal ignancy. Further evaluation with PET/CT is recommended. [facility], , 01/13/2025 12:28 PM
== END | disposition home or self-care (01) ==
LOC: RADCTMAIN 09:50
PROVIDERS: ATTEND Internal Medicine Geriatric Medicine
DX: C34.90 Malignant neoplasm of unspecified part of unspecified bronchus or lung (principal); R91.1 Solitary pulmonary nodule; N28.1 Cyst of kidney, acquired; K76.89 Other specified diseases of liver
CPT/HCPCS: 82565; 84520; 71270; 74170; 36415; Q9967